=== PATIENT | male | born 1945 | race Caucasian/White ===

== ENCOUNTER 2020-04-01 11:33 | Inpatient (IN) | payer OTHER, MEDICARE ==
[~2020-04-01] VITALS: Ht 180.3 cm; Wt 90.0 kg
--- NOTE | 2020-04-01 11:50 | NUR ---
Pt to room from lobby.
--- NOTE | 2020-04-01 11:59 | NUR ---
BREAK RN FOR PRIMARY RN MARY. DR. CASH AT BEDSIDE FOR EVALUATION. 74 Y/O M PRESENTS STATING "BRAIN SURGERY ON MAIN ARTERY ON RIGHT SIDE PUSHING UP AGAINST MY OPTIC NERVE IN JANUARY, CAUSED VISUAL CHANGES WITH MY PERIPHERAL VISION OVER SEVERAL MONTHS WHICH HASN'T RESOLVED, THE SURGERY WAS SUCCESSFUL THOUGH. MY LEFT SIDE FEELS WEAK OR LIMITED, SEEM TO BE SHUFFLING OR DRAGGING FOOT. HAS BEEN GRADUAL OVER LAST 2-2.5 WEEKS. PCP THOUGHT MAY HAVE FLUID ON BRAIN OR A SMALL STROKE. SENT HERE FOR MRI." CMS INTACT, LEFT ARM AND LEG WEAKNESS NOTED. A&OX4. SPEECH CLEAR, NO FACIAL/MOUTH DROOP NOTED. CONT PULSE OX, BP, CARDIAC MONITORS IN PLACE. SR ON MONITOR. VSS. SPOUSE AT BEDSIDE. CALL LIGHT IN REACH. FALL PRECUATIONS IN PLACE. NO CODE NEURO AT THIS TIME PER DR. CASH.
[2020-04-01] MEDS ORDERED: SODIUM CHLORIDE FLUSH 10ML SYR IVF ONE (12:30)
--- NOTE | 2020-04-01 12:35 | NUR ---
IV PLACED, LABS DRAWN AND SENT TO LAB.
--- NOTE | 2020-04-01 12:37 | NUR ---
BEDSIDE REPORT AND TRANSFER OF CARE TO PRIMARY RN MARY
--- NOTE | 2020-04-01 12:48 | NUR ---
CARE OF PT ASSUMED FROM MARY RN AT THIS TIME. MRI SCREENING FORM COMPLETED AND FAXED, ATTEMPTED TO CALL MRI STAFF, UNABLE TO REACH, MESSAGE LEFT WITH RADIOLOGY. PT REQUESTING 3 ADVIL PRIOR TO MRI, DISCUSSED WITH DR. CASH, AWARE. AWAITING ORDERS.
[2020-04-01 12:51] LABS: BASOPHILS # (AUTO) 0.04 x10^3/uL (0-0.1); BASOPHILS % (AUTO) 1 % (0-1); EOSINOPHILS # (AUTO) 0.26 x10^3/uL (0-0.4); EOSINOPHILS % (AUTO) 4 % (1-7); LYMPHOCYTES # (AUTO) 1.51 x10^3/uL (1-3.4); LYMPHOCYTES % (AUTO) 22 % (22-44); MD NO; MEAN CORPUSCULAR VOLUME 91.1 fL (81-97); MEAN PLATELET VOLUME 8.2 fL (7.4-10.4); MONOCYTES % (AUTO) 6 % (2-9); NEUTROPHILS % (AUTO) 68 % (42-75); PLATELET COUNT 242 x10^3/uL (130-400); RED BLOOD COUNT 4.28 x10^6/uL (4.38-5.82); RED CELL DISTRIBUTION WIDTH 14.7 % (9.4-14.8)
[2020-04-01] MEDS ORDERED: TADA20TA PO (12:55)
[2020-04-01] MEDS ORDERED: GLIM1TAB7 PO (12:55)
[2020-04-01] MEDS ORDERED: DESL1TBM2 PO (12:55)
[2020-04-01] MEDS ORDERED: LEVO125T5 PO (12:55)
[2020-04-01] MEDS ORDERED: ASPI-496 PO (12:55)
[2020-04-01] MEDS ORDERED: METF1000 PO (12:55)
[2020-04-01] MEDS ORDERED: LOSA50TA14 PO (12:55)
[2020-04-01] MEDS ORDERED: ATOR40TA PO (12:55)
[2020-04-01] MEDS ORDERED: FLUT15.845 NS (12:55)
[2020-04-01] MEDS ORDERED: VERA120C2 PO (12:55)
[2020-04-01] MEDS ORDERED: GADOTERATE 10 MMOL/20 ML SYR ONE (13:00)
[2020-04-01 13:01] LABS: ALANINE AMINOTRANSFERASE 34 U/L (12-78); ALBUMIN 3.8 g/dL (3.4-5.0); ANION GAP 5 mmol/L (5-15); CALCIUM 9.1 mg/dL (8.5-10.1); CHLORIDE 108 mmol/L (98-107); CREATININE 0.91 mg/dL (0.7-1.3)
[2020-04-01 13:04] LABS: ALKALINE PHOSPHATASE 71 U/L (45-117); BILIRUBIN,TOTAL 0.8 mg/dL (0.2-1.0); TOTAL PROTEIN 7.1 g/dL (6.4-8.2)
[2020-04-01 13:08] LABS: INTERNATIONAL NORMALIZED RATIO 1.04 (0.93-1.1)
[2020-04-01] MEDS ORDERED: IBUPROFEN 600 MG TABLET ONE (13:09)
--- NOTE | 2020-04-01 13:11 | NUR ---
PT MEDICATED NOTED PER PT REQUEST ABD MD ORDER PRIOR TO MRI. DENIES ANY PAIN "I JUST ALWAYS TAKE THE ADVIL BEFORE MY MRI SO I DON'T GET PAIN FROM THE NOISE AFTERWARDS."
--- NOTE | 2020-04-01 13:13 | NUR ---
PT TO MRI AT THIS TIME
[2020-04-01] MEDS ORDERED: EPI-PEN INJ (13:17)
[2020-04-01] MEDS ORDERED: IBUPROFEN 600 MG TABLET PO ONE (13:30)
--- NOTE | 2020-04-01 13:55 | NUR ---
PT REMAINS IN MRI
--- NOTE | 2020-04-01 14:05 | NUR ---
PT BACK FROM MRI AT THIS TIME. VSS. DR. CASH AT BEDSIDE DISCUSSING POC/RESULTS WITH PT AND SPOUSE
--- NOTE | 2020-04-01 14:13 | NUR ---
REPORT AND TRANSFER OF CARE TO RIMMA KHANNA AT THIS TIME
--- NOTE | 2020-04-01 14:45 | NUR ---
REPORT AND CARE BACK FROM BREAK MAURO KHANNA. DR. CASH REMAINS AT BEDSIDE DISCUSSING POC WITH PT AND PT SPOUSE
--- NOTE | 2020-04-01 15:10 | NUR ---
REPORT FROM AV WADE. PT RESTING WITH SPOUSE AT BEDISDE.PT WAITING FOR BED ASSIGNMENT
--- NOTE | 2020-04-01 15:10 | NUR ---
BEDSIDE REPORT AND TRANSFER OF CARE TO SABAS WADE AT THIS TIME
[2020-04-01] MEDS ORDERED: ACETAMINOPHEN 325 MG TABLET PO PRN ×2 (15:30→18:30)
[2020-04-01] MEDS ORDERED: hydrALAzine 20 MG/ML, 1ML IVPush PRN (15:30)
[2020-04-01] MEDS ORDERED: ONDANSETRON 2MG/ML, 2ML IVPush PRN ×2 (15:30→18:30)
[2020-04-01] MEDS ORDERED: OXYcodone IR 5MG TABLET PO PRN (15:30)
[2020-04-01] MEDS ORDERED: DOCUSATE 100 MG CAPSULE PO PRN (15:30)
[2020-04-01] MEDS ORDERED: MELATONIN 5 MG TABLET PO PRN (15:30)
--- NOTE | 2020-04-01 15:47 | NUR ---
GAVE REPORT TO OR.PT WILL BE TRANSFERED IN APPROX 20MIN
[2020-04-01] MEDS ORDERED: BUPIVACAINE/PF-EPI 0.5% 1:200K ONE (16:09)
[2020-04-01] MEDS ORDERED: BACITRACIN 50,000 UNIT ONE ×2 (16:09→17:37)
[2020-04-01] MEDS ORDERED: THROMBIN 5,000 UNIT VIAL TP ONE (16:09)
[2020-04-01 16:16] LABS: FREE T4 (FREE THYROXINE) 1.04 ng/dL (0.76-1.46)
[2020-04-01] MEDS ORDERED: CHLORHEXIDINE 15 ML UDC ONE (16:49)
[2020-04-01] MEDS ORDERED: MIDAZOLAM 1 MG/ML, 2ML ONE (16:55)
[2020-04-01] MEDS ORDERED: FENTANYL PF 250 MCG/5ML ONE (16:55)
[2020-04-01] MEDS: LEVETIRACETAM 1,000 MG in SODIUM CHLORIDE 0.9% 100 ML IV ONE ×2 (17:00→18:59)
[2020-04-01] MEDS ORDERED: ONDANSETRON 2MG/ML, 2ML ONE (17:08)
[2020-04-01] MEDS ORDERED: CEFAZOLIN 1,000 MG ONE (17:08)
[2020-04-01] MEDS ORDERED: DEXAMETHASONE 4 MG/ML, 1ML ONE ×2 (17:24→17:25)
[2020-04-01] MEDS ORDERED: SUCCINYLCHOLINE 20 MG/ML, 10ML ONE (17:58)
[2020-04-01] MEDS ORDERED: PROPOFOL 10 MG/ML, 20ML ONE (17:58)
[2020-04-01] MEDS ORDERED: ROCURONIUM 10MG/ML,5ML ONE (17:58)
[2020-04-01] MEDS ORDERED: LABETALOL 5MG/ML, 20ML IV PRN (18:30)
[2020-04-01] MEDS ORDERED: MIDAZOLAM 1 MG/ML, 2ML IV PRN (18:30)
[2020-04-01] MEDS ORDERED: DIPHENHYDRAMINE 50 MG/ML, 1ML IVPush PRN (18:30)
[2020-04-01] MEDS ORDERED: hydrALAzine 20 MG/ML, 1ML IV PRN (18:30)
[2020-04-01] MEDS ORDERED: PROMETHAZINE 12.5 MG SUPP PR PRN (18:30)
[2020-04-01] MEDS ORDERED: PROMETHAZINE 25 MG/ML, 1ML IVPush PRN (18:30)
[2020-04-01] MEDS ORDERED: DIAZEPAM 5 MG/ML, 2ML IVPush PRN (18:30)
[2020-04-01] MEDS ORDERED: OXYcodone 5 MG/5 ML ORAL.SOL UDC PO PRN (18:30)
[2020-04-01] MEDS ORDERED: HYDROmorphone 1 MG/ML, 1ML INJ IVPush PRN (18:30)
[2020-04-01] MEDS ORDERED: ALBUTEROL SULFATE 2.5 MG/3 ML NPPB PRN (18:30)
[2020-04-01] MEDS ORDERED: FENTANYL PF 100 MCG/2ML IV PRN (18:30)
[2020-04-01] MEDS ORDERED: EPHEDRINE 50 MG/ML, 1ML IVPush PRN (18:30)
[2020-04-01] MEDS ORDERED: MEPERIDINE/PF 25MG/0.5ML IVPush PRN (18:30)
[2020-04-01] MEDS: metFORMIN 500 MG TABLET PO SCH (19:58)
[2020-04-01 20:23] VITALS: BP 121/56
[2020-04-01] MEDS: INSULIN LISPRO 100 UNITS/ML, PEN SQ-INSULIN SCH ×2 (21:00→21:16)
[2020-04-01 21:07] LABS: MICROSCOPIC AUTO
[2020-04-01] MEDS: FAMOTIDINE 20 MG TABLET PO SCH (21:16)
[2020-04-01] MEDS: ATORVASTATIN 40 MG TABLET PO SCH (21:16)
[2020-04-01] MEDS: CEFAZOLIN PMX 1GM/50ML 50 ML IV SCH (21:24)
[2020-04-02 03:22] LABS: ANION GAP 4 mmol/L (5-15); CALCIUM 8.6 mg/dL (8.5-10.1); CHLORIDE 110 mmol/L (98-107); CREATININE 0.89 mg/dL (0.7-1.3)
[2020-04-02 03:31] LABS: BASOPHILS # (AUTO) 0.02 x10^3/uL (0-0.1); BASOPHILS % (AUTO) 0 % (0-1); EOSINOPHILS % (AUTO) 0 % (1-7); LYMPHOCYTES # (AUTO) 0.59 x10^3/uL (1-3.4); LYMPHOCYTES % (AUTO) 9 % (22-44); MD NO; MEAN CORPUSCULAR VOLUME 90.9 fL (81-97); MEAN PLATELET VOLUME 8.4 fL (7.4-10.4); MONOCYTES # (AUTO) 0.05 x10^3/uL (0.2-0.8); MONOCYTES % (AUTO) 1 % (2-9); NEUTROPHILS # (AUTO) 5.73 x10^3/uL (1.8-6.8); NEUTROPHILS % (AUTO) 90 % (42-75); PLATELET COUNT 228 x10^3/uL (130-400); RED BLOOD COUNT 4.09 x10^6/uL (4.38-5.82); RED CELL DISTRIBUTION WIDTH 14.2 % (9.4-14.8)
[2020-04-02 04:03] VITALS: BP 110/45
[2020-04-02] MEDS: CEFAZOLIN PMX 1GM/50ML 50 ML IV SCH (04:57)
[2020-04-02] MEDS: LEVOTHYROXINE 125 MCG TABLET PO SCH (05:57)
[2020-04-02] MEDS: LEVETIRACETAM 500 MG TABLET PO SCH ×2 (05:57→16:31)
[2020-04-02] MEDS: INSULIN LISPRO 100 UNITS/ML, PEN SQ-INSULIN SCH ×4 (06:32→20:54)
[2020-04-02] MEDS: PSEUDOEPHEDRINE PO SCH (07:57)
[2020-04-02] MEDS: DESLORATADINE PO SCH (07:57)
[2020-04-02] MEDS: LOSARTAN 50MG TABLET PO SCH (09:00)
[2020-04-02] MEDS ORDERED: VERAPAMIL ER 120MG TABLET.ER PO SCH (09:00)
[2020-04-02] MEDS: FAMOTIDINE 20 MG TABLET PO SCH ×2 (09:36→20:11)
[2020-04-02] MEDS: metFORMIN 500 MG TABLET PO SCH ×2 (09:36→16:31)
[2020-04-02] MEDS: FLUTICASONE NASAL SPRAY 16GM NAS SCH (09:44)
[2020-04-02] MEDS: LORATADINE 10 MG TABLET PO SCH (12:11)
[2020-04-02] MEDS: ATORVASTATIN 40 MG TABLET PO SCH (20:11)
[2020-04-03 04:36] VITALS: BP 116/54
[2020-04-03 05:24] LABS: ANION GAP 4 mmol/L (5-15); CHLORIDE 111 mmol/L (98-107)
[2020-04-03 05:25] LABS: CREATININE 0.92 mg/dL (0.7-1.3)
[2020-04-03] MEDS: LEVETIRACETAM 500 MG TABLET PO SCH ×2 (05:51→17:51)
[2020-04-03] MEDS: INSULIN LISPRO 100 UNITS/ML, PEN SQ-INSULIN SCH ×4 (05:52→19:59)
[2020-04-03] MEDS: LEVOTHYROXINE 125 MCG TABLET PO SCH (05:52)
[2020-04-03] MEDS: FAMOTIDINE 20 MG TABLET PO SCH ×2 (08:07→19:46)
[2020-04-03] MEDS: LOSARTAN 50MG TABLET PO SCH ×2 (08:07→08:13)
[2020-04-03] MEDS: LORATADINE 10 MG TABLET PO SCH (08:07)
[2020-04-03] MEDS: DESLORATADINE PO SCH (08:07)
[2020-04-03] MEDS: PSEUDOEPHEDRINE PO SCH (08:07)
[2020-04-03] MEDS: metFORMIN 500 MG TABLET PO SCH ×2 (08:07→17:51)
[2020-04-03] MEDS: FLUTICASONE NASAL SPRAY 16GM NAS SCH (08:12)
[2020-04-03 10:49] VITALS: BP 132/74
[2020-04-03] MEDS ORDERED: hydrALAzine 20 MG/ML, 1ML IVPush PRN (11:30)
[2020-04-03] MEDS ORDERED: LEVE500T53 PO (13:13)
[2020-04-03] MEDS: GLIMEPIRIDE 1 MG TABLET PO SCH (17:51)
[2020-04-03] MEDS: ATORVASTATIN 40 MG TABLET PO SCH (19:46)
[2020-04-03 20:46] VITALS: BP 129/71
[2020-04-04 00:27] VITALS: BP 99/61
[2020-04-04] MEDS: LEVOTHYROXINE 125 MCG TABLET PO SCH (06:30)
[2020-04-04] MEDS: LEVETIRACETAM 500 MG TABLET PO SCH (06:30)
[2020-04-04] MEDS: INSULIN LISPRO 100 UNITS/ML, PEN SQ-INSULIN SCH (06:40)
[2020-04-04 08:27] VITALS: BP 130/70
[2020-04-04] MEDS: FAMOTIDINE 20 MG TABLET PO SCH (08:35)
[2020-04-04] MEDS: LORATADINE 10 MG TABLET PO SCH (08:35)
[2020-04-04] MEDS: PSEUDOEPHEDRINE PO SCH (08:35)
[2020-04-04] MEDS: DESLORATADINE PO SCH (08:35)
[2020-04-04] MEDS: LOSARTAN 50MG TABLET PO SCH (08:35)
[2020-04-04] MEDS: FLUTICASONE NASAL SPRAY 16GM NAS SCH (08:35)
[2020-04-04] MEDS: metFORMIN 500 MG TABLET PO SCH (08:35)
[2020-04-04] MEDS: GLIMEPIRIDE 1 MG TABLET PO SCH (08:35)
== END 2020-04-04 09:45 | disposition home or self-care (01) | DRG 25 ==
LOC: ED 13:08 → EDIP 15:31 → CCU 19:17 → 4NE 04-03 10:40 → DCLOUNGE 04-04 09:39
PROVIDERS: ADMIT Hospitalist; ATTEND Hospitalist
PROC: 03HY32Z Insertion of Monitoring Device into Upper Artery, Percutaneous Approach (ICD-10-PCS; 2020-04-01)
PROC: 00C40ZZ Extirpation of Matter from Intracranial Subdural Space, Open Approach (ICD-10-PCS; principal; 2020-04-01 16:15)
DX: I62.00 Nontraumatic subdural hemorrhage, unspecified (principal); G93.5 Compression of brain; E11.9 Type 2 diabetes mellitus without complications; R01.1 Cardiac murmur, unspecified; E78.5 Hyperlipidemia, unspecified; E03.9 Hypothyroidism, unspecified; J30.2 Other seasonal allergic rhinitis; E78.00 Pure hypercholesterolemia, unspecified; I10 Essential (primary) hypertension; Z82.49 Family history of ischemic heart disease and other diseases of the circulatory system; Z91.030 Bee allergy status; Z87.891 Personal history of nicotine dependence; Z03.818 Encounter for observation for suspected exposure to other biological agents ruled out
CPT/HCPCS: 36415; 70450; 70553; 71045; 80048; 80053; 81001; 82962; 83735; 84100; 84439; 84443; 85025; 85610; 85730; 87081; 87635; 93005; 99291; C1713; G0378; J0690; J1100; J1953; J2250; J2405; J2704; J3010; A9575; J0330; J1815

== ENCOUNTER → 2020-04-15 | Outpatient (CLI) | payer OTHER, MEDICARE ==
[~2020-04-15] MED LIST: ASPI-496 PO; ATOR40TA PO; DESL1TBM2 PO; EPI-PEN INJ; FLUT15.845 NS; GLIM1TAB7 PO; LEVE500T53 PO; LEVO125T5 PO; LOSA50TA14 PO; METF1000 PO; TADA20TA PO; VERA120C2 PO
== END | disposition home or self-care (01) ==
LOC: CFH 09:47
PROVIDERS: ATTEND Nurse Practitioner Critical Care Medicine
DX: S06.5X9A Traumatic subdural hemorrhage with loss of consciousness of unspecified duration, initial encounter (principal); G93.89 Other specified disorders of brain; X58.XXXA Exposure to other specified factors, initial encounter; Y93.89 Activity, other specified; Y92.89 Other specified places as the place of occurrence of the external cause; Y99.8 Other external cause status
CPT/HCPCS: 70450

== ENCOUNTER → 2020-04-28 | Outpatient (CLI) | payer OTHER, MEDICARE | END | disposition home or self-care (01) | LOC: RAD 14:24 | PROVIDERS: ATTEND Nurse Practitioner Critical Care Medicine | DX: I62.00 Nontraumatic subdural hemorrhage, unspecified (principal); J34.89 Other specified disorders of nose and nasal sinuses; J32.9 Chronic sinusitis, unspecified | CPT/HCPCS: 70450 ==

== ENCOUNTER → 2020-05-16 | Outpatient (CLI) | payer OTHER, MEDICARE ==
[~2020-05-16] MED LIST changes: +CEPH-376 PO; +DAPT500V3 INJ; +DEXA4TAB66 PO; +FAMO40TA61 PO
== END | disposition home or self-care (01) ==
LOC: RAD 15:49
PROVIDERS: ATTEND Registered Nurse
DX: S06.5X9A Traumatic subdural hemorrhage with loss of consciousness of unspecified duration, initial encounter (principal); X58.XXXA Exposure to other specified factors, initial encounter; Y93.89 Activity, other specified; Y92.89 Other specified places as the place of occurrence of the external cause; Y99.8 Other external cause status; G31.9 Degenerative disease of nervous system, unspecified
CPT/HCPCS: 70450

== ENCOUNTER → 2020-06-03 | Outpatient (CLI) | payer OTHER, MEDICARE ==
[~2020-06-03] MED LIST changes: +GADOTERATE 10 MMOL/20 ML SYR ONE
== END | disposition home or self-care (01) ==
LOC: RAD 10:51
PROVIDERS: ATTEND Registered Nurse
DX: I62.00 Nontraumatic subdural hemorrhage, unspecified (principal)
CPT/HCPCS: 70553; A9575

== ENCOUNTER → 2020-06-20 | Outpatient (CLI) | payer OTHER, MEDICARE ==
[~2020-06-20] MED LIST changes: -GADOTERATE 10 MMOL/20 ML SYR ONE
== END | disposition home or self-care (01) ==
LOC: RAD 10:22
PROVIDERS: ATTEND Registered Nurse
DX: I67.82 Cerebral ischemia (principal); J34.89 Other specified disorders of nose and nasal sinuses; G93.89 Other specified disorders of brain; I62.00 Nontraumatic subdural hemorrhage, unspecified
CPT/HCPCS: 70450

== ENCOUNTER → 2020-07-22 | Outpatient (CLI) | payer OTHER, MEDICARE | END | disposition home or self-care (01) | LOC: CFH 10:51 | PROVIDERS: ATTEND Neurological Surgery | DX: I62.00 Nontraumatic subdural hemorrhage, unspecified (principal) | CPT/HCPCS: 70450 ==